=== PATIENT | female | born 2000 | race American Indian/Alaskan Native ===

== ENCOUNTER 2019-07-05 10:06 | Emergency (ER) | payer SELFPAY ==
[2019-07-05] MEDS ORDERED: IBUPROFEN 600 MG TAB PO ONE ×2 (10:17)
[2019-07-05] MEDS ORDERED: SODIUM CHLORIDE 0.9% 1000 ML IV SOLN IV ONE (11:43)
--- NOTE | 2019-07-05 11:48 | Emergency Department Report ---
ED Fever HPI - General Chief Complaint: Fever Stated Complaint: FLU LIKE SYMPTOMS Time Seen by Provider: 07/05/19 11:35 Source: patient Exam Limitations: no limitations - History of Present Illness Initial Comments: 18-year-old female, no past medical history, presents to ED with 3 day history of flulike symptoms. Patient reports fever, chills, headache, cough, shortness of breath, vomiting, body aches. Patient states she has been taking an [id number] medications at home. Patient reports she did not get the flu shot this season. Timing/Duration: other (3 days ago) Fever Severity/Quality: subjective Fever Therapy HALAL BUTCHER: Ibuprofen Associated Symptoms: cough, headache, muscle aches, nausea/vomiting, shortness of breath, weakness. denies: abdominal pain, chest pain ED Review of Systems ROS: Stated complaint: FLU LIKE SYMPTOMS Other details as noted in HPI Comment: All other systems reviewed and negative Constitutional: chills, fever Respiratory: cough, shortness of breath Cardiovascular: denies: chest pain Gastrointestinal: nausea, vomiting. denies: abdominal pain Musculoskeletal: myalgia Neurological: headache ED Past Medical Hx - Past Medical History Previous Medical History?: No - Surgical History Past Surgical History?: No - Social History Smoking Status: Never Smoker - Medications Home Medications: Home Medications Medication Instructions Recorded Confirmed Last Taken Type Albuterol Sulfate [Proventil Hfa] 2 puff IH Q4HR PRN #1 hfa.aer.ad 07/05/19 Unknown Rx Benzonatate [Tessalon Perles] 100 mg PO Q8HR PRN #20 capsule 07/05/19 Unknown Rx Naproxen [Naprosyn] 500 mg PO BID #20 tablet 07/05/19 Unknown Rx Ondansetron [Zofran Odt] 4 mg PO Q8HR PRN #20 tab.rapdis 07/05/19 Unknown Rx ED Physical Exam - General Limitations: No Limitations General appearance: alert, in no apparent distress - Head Head exam: Present: atraumatic, normocephalic - Eye Eye exam: Present: normal appearance, EOMI - ENT ENT exam: Present: mucous membranes moist - Neck Neck exam: Present: normal inspection - Respiratory Respiratory exam: Present: normal lung sounds bilaterally. Absent: respiratory distress, wheezes, rales, rhonchi - Cardiovascular Cardiovascular Exam: Present: normal rhythm, tachycardia - GI/Abdominal GI/Abdominal exam: Present: soft. Absent: distended, tenderness - Extremities Exam Extremities exam: Present: normal inspection - Neurological Exam Neurological exam: Present: alert, oriented X3, CN II-XII intact. Absent: motor sensory deficit - Psychiatric Psychiatric exam: Present: normal affect, normal mood - Skin Skin exam: Present: warm, dry, intact, normal color ED Course Vital Signs 07/05/19 07/05/19 07/05/19 10:10 11:15 11:20 Temperature 101.7 F H 102.2 F H Pulse Rate 138 H Respiratory 20 20 Rate Blood Pressure 109/73 Blood Pressure [Left] O2 Sat by Pulse 99 Oximetry 07/05/19 07/05/19 11:53 12:40 Temperature 100.8 F H 99.5 F Pulse Rate 118 H 95 H Respiratory 20 19 Rate Blood Pressure 96/54 Blood Pressure 100/65 [Left] O2 Sat by Pulse 99 100 Oximetry - Reevaluation(s) Reevaluation #1: 07/05/19 12:54 Pt states she is feeling much better at this time. ED Medical Decision Making - Lab Data Result diagrams: 07/05/19 11:56 07/05/19 11:56 - Radiology Data Radiology results: report reviewed, image reviewed - Medical Decision Making 18-year-old female presents to ED with flulike symptoms. Patient with fever of 101.7. Symptoms ongoing 3 days. IV fluids given. Labs showed WBCs of 17, no left shift. Lactic acid is normal. Chest x-ray is normal. Repeat vitals show resolution of fever and tachycardia. Blood pressure is 96/54, however this may be normal for patient as she is small in stature, and only weighs 51 kg. Patient feeling much better at this time. She is out of the treatment window for Tamiflu, so will treat her symptomatically. Outpatient follow-up advised. Return precautions given. - Differential Diagnosis flu, viral illness, sepsis, pneumonia Critical care attestation.: If time is entered above; I have spent that time in minutes in the direct care of this critically ill patient, excluding procedure time. ED Disposition Clinical Impression: Viral illness Disposition: DC-01 TO HOME OR SELFCARE Is pt being admited?: No Condition: Stable Instructions: Viral Syndrome (ED), Influenza (ED), Upper Respiratory Infection (ED) Referrals: PRIMARY CARE, [Primary Care Provider] - 3-5 Days [facility] [Provider Group] - 3-5 Days Time of Disposition: 13:58
[2019-07-05] MEDS ORDERED: ONDANSETRON 4 MG/2 ML INJ IV ONE (12:05)
[2019-07-05 12:29] LABS: Basophils % (Auto) 0.3 % (0.0-1.8); Hematocrit 37.3 % (30.3-42.9); Hemoglobin 12.2 gm/dl (10.1-14.3); Lymphocytes # (Auto) 1.3 K/mm3 (1.2-5.4); Lymphocytes % (Auto) 7.7 % (13.4-35.0); Mean Corpuscular HGB Conc 33 % (30-34); Mean Corpuscular Volume 91 fl (79-97); Monocytes % (Auto) 11.5 % (0.0-7.3); Platelet Count 226 K/mm3 (140-440); Red Blood Count 4.12 M/mm3 (3.65-5.03); Red Cell Distribution Width 14.2 % (13.2-15.2)
[2019-07-05 12:35] LABS: Alanine Aminotransferase 16 units/L (7-56); Albumin 4.1 g/dL (3.9-5); BUN/Creatinine Ratio 11; Blood Urea Nitrogen 8 mg/dL (7-17); Calcium 9.5 mg/dL (8.4-10.2); Hemolysis Index 66
--- NOTE | 2019-07-05 13:10 | XRay Report ---
CHEST 2 VIEWS INDICATION / CLINICAL INFORMATION: cough. COMPARISON: None available. FINDINGS: SUPPORT DEVICES: None. HEART / MEDIASTINUM: No significant abnormality. LUNGS / PLEURA: No significant pulmonary or pleural abnormality. No pneumothorax. ADDITIONAL FINDINGS: No significant additional findings. IMPRESSION: 1. No acute findings. Signer Name: Piter Cali MD Signed: 07/05/2019 1:05 PM Workstation Name: [id number]
[2019-07-05 14:11] VITALS: BP 118/71
== END 2019-07-05 14:08 | disposition home or self-care (01) ==
LOC: ED 10:06
DX: B34.9 Viral infection, unspecified (principal)
CPT/HCPCS: 36415; 71046; 80053; 82140; 84703; 85025; 96361; 96374; 99284; J2405; J7030